=== PATIENT | female | born 1970 | race Caucasian/White ===

== ENCOUNTER → 2016-08-20 | Outpatient (CLI) | payer MEDICARE, OTHER ==
[~2016-08-20] MED LIST: ATORVASTATIN CA20 MG PO; CELEXA10 M1 PO; MULTIVITAMINS1 EAC3 PO; SPIRONOLACTONE100 MG PO
--- NOTE | ~2016-08-20 | MY11 ---
[facility] A Service of [facility] RADIOLOGY TEXT RESULTS PATIENT: ALLEN VEGAS LOCATION: [facility] : 72 UNIT #: [id number] AGE: [address]: Denia Chisholm MD SEX: F ORDER DR: [id number] [address] [address] [id number] O MR#: [id number] Acc #: [id number] NAME: ALLEN VEGAS : 1970 SEX: F STUDY DATE/TIME: 08/20/2016 11:42 UNIT: [facility] ROOM: STUDY DESCRIPTION: MY Mammogram Screening Dig Cruzito Attending Physician: Denia Chisholm M.D. Referring Physician: Denia Chisholm M.D. Ordering Physician: Denia Chisholm M.D. Primary Care Physician: Denia Chisholm M.D. MEDICAL IMAGING REPORT This report is preliminary unless electronic signature is present. EXAM Bilateral digital screening mammogram with CAD. DATE OF EXAM 08/20/2016 INDICATIONS 45-year-old female for routine screening. No reported problems. No personal or family history of breast cancer. No surgeries. TECHNIQUE CC and MLO views of the breast were obtained and reviewed with an FDA-approved CAD device. COMPARISON 07/25/2015, 07/05/2014, 05/11/2013. FINDINGS Breast parenchyma is composed of scattered fibroglandular densities. The pattern is unchanged. There is no new dominant nodule, mass or suspicious clustered microcalcifications. Benign calcifications are present. Mildly prominent tissue in the lower outer hemisphere left breast centrally is unchanged. There are benign calcifications present. IMPRESSION Benign screening mammogram. 1-year followup recommended. Patients over the age of 40 are entered into a reminder system with target due date for the next mammogram. A result letter will also be sent to the patient. BIRADS: 2 Benign findings. [facility] A Service of [facility] RADIOLOGY TEXT RESULTS PATIENT: ALLEN VEGAS LOCATION: [facility] : 72 UNIT #: [id number] AGE: [address]: Denia Chisholm MD SEX: F ORDER DR: Dictated by... Elio Frazier M.D. THIS IS AN ELECTRONICALLY VERIFIED REPORT Elio Frazier M.D. at 08/20/2016 5:20 PM JERRY/amalia TD: 08/20/2016 15:44 JOB #: [id number] MEDICAL IMAGING REPORT
== END | disposition home or self-care (01) ==
LOC: SMAM 11:03
DX: Z12.31 Encounter for screening mammogram for malignant neoplasm of breast (principal)
CPT/HCPCS: G0202

== ENCOUNTER → 2016-11-03 | Day surgery (SDC) | payer MEDICARE, OTHER ==
--- NOTE | ~2016-11-03 | OR ---
Unit #: [id number] #: [id number] Patient: ALLEN VEGAS [id number] [address] [address] [id number] O MR#: [id number] NAME: ALLEN VEGAS. ROOM: Date of Procedure: 11/03/2016 Admission Date: 11/03/2016 Surgeon: Riky Mcmillan M.D. : 1970 Attending Physician: Riky Mcmillan M.D. Primary Care Physician: Denia Chisholm M.D. OPERATIVE REPORT JOB NOTE: CC: PRIMARY CARE PHYSICIAN. PROCEDURE PERFORMED Colonoscopy to cecum. INDICATIONS FOR PROCEDURE A 45-year-old female with strong family history of colon cancer. MEDICATIONS Monitored anesthesia. POSTOPERATIVE FINDINGS 1. Mild diverticulosis. No polyps or masses. 2. Good prep. PLAN Repeat colonoscopy in 5 years. DESCRIPTION OF PROCEDURE The patient was explained of the procedure, risks, and benefits along with the risks and benefits of anesthesia. She was brought to the endoscopy room. Propofol anesthesia was given. Rectal exam was done, which was normal. Colonoscope was lubricated, passed up the rectum, advanced under direct vision all the way to the cecum. Cecum was identified by ileocecal valve and appendiceal orifice. I then started to pull the scope out carefully looking. No polyps, masses, or colitis was seen. Mild diverticulosis was seen. I retroflexed in the rectum, small hemorrhoids seen. The scope was gently pulled out. She tolerated it well. Dictated by... Suzie Gaona/marcin TD: 11/03/2016 15:06 JOB #: [id number] Unit #: [id number] #: [id number] Patient: ALLEN VEGAS OPERATIVE REPORT Page 1 of 1 X Riky Mcmillan MD X PROCEDURE OPERATIVE NOTE
== END | disposition home or self-care (01) ==
LOC: COPS 07:56
DX: Z12.11 Encounter for screening for malignant neoplasm of colon (principal); K57.30 Diverticulosis of large intestine without perforation or abscess without bleeding; K64.9 Unspecified hemorrhoids; I10 Essential (primary) hypertension; E78.5 Hyperlipidemia, unspecified; Z80.0 Family history of malignant neoplasm of digestive organs; Z79.899 Other long term (current) drug therapy; Z90.710 Acquired absence of both cervix and uterus; Z98.51 Tubal ligation status; Z98.890 Other specified postprocedural states
CPT/HCPCS: J2250